=== PATIENT | female | born 1975 | race Caucasian/White ===

== ENCOUNTER 2019-09-06 21:04 | Emergency (ER) | payer OTHER, SELFPAY ==
--- NOTE | 2019-09-06 21:17 | ED.ANIMALBIT ---
HPI - Animal Bite General Chief Complaint: Animal Bite Stated Complaint: Rt hand dog bite Time Seen by Provider: 09/06/19 21:17 Source: patient and family Mode of arrival: ambulatory Limitations: no limitations History of Present Illness HPI narrative: 44-year-old woman comes in today complaining of lacerations on her right hand that occurred when her dog bit her. She was trying to break up a fight between her 2 dogs when it happened. She states her last tetanus shot was last summer. She states she has a little decreased feeling in her finger tips but she has no numbness. complaint: animal bite Onset (ago): hour(s) (1) Animal: dog Description of animal: household pet and immunizations UTD Mechanism: bite Location: other ( Right hand) Pain description: sharp Severity scale (1-10): 3 Context: animals fighting Associated symptoms: bleeding Treatments prior to arrival: pressure Related Data Patient tetanus UTD: Yes Home Medications Medication Instructions Recorded Confirmed sertraline 50 mg PO DAILY 09/06/19 09/06/19 topiramate 25 mg PO DAILY 09/06/19 09/06/19 Allergies Allergy/AdvReac Type Severity Reaction Status Date / Time No Known Allergies Allergy Verified 09/06/19 21:58 Review of Systems Constitutional: Constitutional: Denies chills, Denies fever(s) and Denies weakness ENT: Denies dysphagia, Denies nasal congestion and Denies sore throat Cardiovascular: Cardiovascular: Denies chest pain and Denies radiating jaw, neck or arm pain Respiratory: Respiratory: Denies cough, Denies dyspnea and Denies wheezing Gastrointestinal: Gastrointestinal: Denies nausea and Denies vomiting Integumentary/Breasts: Skin/Breast: Reports as per HPI, Denies pruritus, Denies erythema and Denies rash Neurologic: Denies vertigo, Denies dizziness, Denies syncope, Denies numbness and Denies weakness Hematologic/Lymphatic: Hematologic/Lymphatic: Denies easy bleeding and Denies easy bruising Allergic/Immunologic: Allergic/Immunologic: Denies lip swelling and Denies wheezing PMFSH Past Medical History Medical History Depression Surgical History Surgical History History of Social History Social History (Updated 09/06/19 @ 21:55 by Issa Medina MD) Smoking status: Never smoker Alcohol intake: never Substance use: never Living arrangements: with family Exam Const: General: no acute distress and alert Orientation/consciousness: patient oriented x3 Limitations: no limitations Skin: Other: 3 dorsal hand lacerations are noted. One, 1cm laceration between index and long fingers, the 2nd his on the dorsal aspect the right hand an approximately 1.2 cm. the 3rd is 1.8 cm, slightly irregular, and the base of the right thumb. Neuro: General: patient oriented x3, moves all extremities, no focal motor deficits and CN's II-XI intact bilaterally Other: Extensor tendons of the thumb and index finger both superficial and profundus are intact To challenge. Normal sensation the distal thumb, index, and long fingers. Extrem: General: normal to inspection and no clubbing, cyanosis or edema Psych: Appearance: grossly normal and well kempt Mental Status: mental status grossly normal Affect: normal affect Attitude: cooperative Thought content: Yes Normal thought content present Procedures Laceration Laceration 1: Date: 09/06/19 Time: 21:30 Site: hand Side (If applicable): right Size (cm): 1.2 Description: linear and clean Depth: simple, single layer Local Anesthetic: lidocaine 1% Amount of anesthesia used (mL): 3 Pre-repair: wound explored, irrigated extensively and deep structures intact ====== Skin Level ====== Skin layer closed with: nylon Size (cm): 4-0 Number of sutures: 1 Techni
[2019-09-06 21:20] VITALS: BP 138/76; PULSE 90; RESP 14; TEMP 37.3; O2SAT 99
[2019-09-06] MEDS: LIDOCAINE HCL 1% LOCAL INJ 20 ML VIAL 7 ML INFILTRATE (21:38)
[2019-09-06 22:05] VITALS: RESP 14; O2SAT 100
[2019-09-06] MEDS: AMOXICILLIN/CLAVULANATE K 875-125 MG TAB 1 TABLET PO (22:10)
== END 2019-09-06 22:16 | disposition home or self-care (01) ==
PROVIDERS: Emergency Provider Emergency Medicine; PCP Internal Medicine
DX: S61.411A Laceration without foreign body of right hand, initial encounter (principal); S61.451A Open bite of right hand, initial encounter; W54.0XXA Bitten by dog, initial encounter
CPT/HCPCS: 12002; 99283; A9270

== ENCOUNTER 2021-07-11 08:44 | Outpatient (CLI) | payer OTHER, SELFPAY ==
[2021-07-11 08:54] LABS: Basophils Absolute Auto 0.01 K/mm3 (0.00-0.10); Basophils Percent Auto 0.2 % (0.0-1.0); Eosinophils Absolute Auto 0.19 K/mm3 (0.02-0.50); Eosinophils Percent Auto 3.6 % (1.0-6.0); Hematocrit 39.6 % (35.0-49.0); Hemoglobin 12.8 g/dL (12.0-15.0); Immature Granulocyte Absolute 0.01 K/mm3 (0.00-0.00); Immature Granulocyte Percent A 0.2 % (0.0-0.0); Lymphocytes Absolute Auto 1.54 K/mm3 (1.10-4.50); Lymphocytes Percent Auto 29.4 % (18.0-42.0); Mean Corpuscular HGB Conc 32.3 g/dL (32.0-36.0); Mean Corpuscular Hemoglobin 28.7 pg (27.0-31.0); Mean Corpuscular Volume 88.8 fL (78.0-102.0); Mean Platelet Volume 10.5 fl (9.2-11.8); Monocytes Percent Auto 9.6 % (2.0-11.0); Platelet Count Result 196 K/mm3 (150-420); Red Blood Count 4.46 M/mm3 (4.20-5.40); Red Cell Distribution Width 13.2 % (11.6-14.4); White Blood Count 5.2 K/mm3 (4.8-10.8)
[2021-07-11 08:57] LABS: Add Urine Microscopic? YES; Appearance Urine Clear (Clear); Bilirubin Urine Negative (Negative); Blood Urine 1+ (Negative); Color Urine Light Yellow (Yellow); Glucose Urine UA Negative (Negative); Ketones Urine Negative (Negative); Leukocyte Esterase Ur Trace (Negative); Nitrate Urine Negative (Negative); Protein Urine Negative (Negative); Specific Grav Ur 1.025 (1.010-1.020); Urobilinogen Urine 0.2 mg/dL (0.2-1.0)
[2021-07-11 09:02] LABS: Bacteria Urine Trace /hpf; Mucus Urine Few /lpf; Squamous Epithelial Cell Urine Moderate /hpf (Few); WBC Urine 0-3 /hpf (0-3)
[2021-07-11 09:45] LABS: Alanine Aminotransferase 15 U/L (14-59); Albumin Level 3.1 g/dL (3.4-5.0); Alkaline Phosphatase 51 U/L (46-116); Anion Gap 10 mmol/L (8-16); Aspartate Amino Transferase 11 U/L (15-37); Bilirubin,Total 0.2 mg/dL (0.00-1.00); Blood Urea Nitrogen 16 mg/dL (7-18); Calcium 8.9 mg/dL (8.5-10.1); Carbon Dioxide 27 mmol/L (21-32); Chloride 104 mmol/L (98-108); Cholesterol 217 mg/dL (0-200); Estimated Glomerular Filt Rate > 60; Glucose 87 mg/dL (70-99); HDL Direct 64 mg/dL (40-60); LDL Cholesterol Calculated 104 mg/dL (<130); Osmolality Calculated 292 mOsm/kg (285-295); Potassium 4.1 mmol/L (3.5-5.1); Sodium 141 mmol/L (136-145); Total Protein 7.1 g/dL (6.4-8.2); Triglycerides 244 mg/dL (0-150)
== END 2021-07-11 08:45 | disposition home or self-care (01) ==
LOC: CHSLAB 08:46
PROVIDERS: PCP Internal Medicine; Visit Provider Internal Medicine
DX: Z00.00 Encounter for general adult medical examination without abnormal findings (principal)
CPT/HCPCS: 36415; 80053; 80061; 81001; 84443; 85025

== ENCOUNTER 2021-10-07 08:16 | Outpatient (CLI) | payer OTHER, SELFPAY ==
[2021-10-07 08:28] LABS: Basophils Absolute Auto 0.01 K/mm3 (0.00-0.10); Basophils Percent Auto 0.2 % (0.0-1.0); Eosinophils Absolute Auto 0.09 K/mm3 (0.02-0.50); Eosinophils Percent Auto 1.4 % (1.0-6.0); Hematocrit 42.9 % (35.0-49.0); Immature Granulocyte Absolute 0.02 K/mm3 (0.00-0.00); Immature Granulocyte Percent A 0.3 % (0.0-0.0); Lymphocytes Absolute Auto 1.71 K/mm3 (1.10-4.50); Lymphocytes Percent Auto 26.8 % (18.0-42.0); Mean Corpuscular HGB Conc 32.6 g/dL (32.0-36.0); Mean Corpuscular Hemoglobin 29.2 pg (27.0-31.0); Mean Corpuscular Volume 89.6 fL (78.0-102.0); Mean Platelet Volume 11.2 fl (9.2-11.8); Monocytes Absolute Auto 0.48 K/mm3 (0.10-0.90); Monocytes Percent Auto 7.5 % (2.0-11.0); Neutrophils Absolute Auto 4.1 K/mm3 (1.7-7.2); Neutrophils Percent Auto 63.8 % (50.0-70.0); Platelet Count Result 197 K/mm3 (150-420); Red Blood Count 4.79 M/mm3 (4.20-5.40); Red Cell Distribution Width 13.8 % (11.6-14.4); White Blood Count 6.4 K/mm3 (4.8-10.8)
[2021-10-07 08:42] LABS: Add Urine Microscopic? YES; Appearance Urine Clear (Clear); Bilirubin Urine Negative (Negative); Blood Urine Negative (Negative); Color Urine Light Yellow (Yellow); Glucose Urine UA Negative (Negative); Ketones Urine Negative (Negative); Leukocyte Esterase Ur 1+ (Negative); Nitrate Urine Negative (Negative); Protein Urine Negative (Negative); Specific Grav Ur >= 1.030 (1.010-1.020); Urobilinogen Urine 0.2 mg/dL (0.2-1.0); pH Urine 5.5 (5.0-8.0)
[2021-10-07 08:59] LABS: RBC Urine 0-2 /hpf (0-2); Squamous Epithelial Cell Urine Moderate /hpf (Few)
[2021-10-07 09:00] LABS: Bacteria Urine Trace /hpf
[2021-10-07 09:07] LABS: Alanine Aminotransferase 30 U/L (14-59); Albumin Level 3.5 g/dL (3.4-5.0); Alkaline Phosphatase 81 U/L (46-116); Anion Gap 10 mmol/L (8-16); Aspartate Amino Transferase 33 U/L (15-37); Bilirubin,Total 0.4 mg/dL (0.00-1.00); Blood Urea Nitrogen 13 mg/dL (7-18); Carbon Dioxide 27 mmol/L (21-32); Chloride 104 mmol/L (98-108); Estimated Glomerular Filt Rate > 60; Glucose 88 mg/dL (70-99); Osmolality Calculated 291 mOsm/kg (285-295); Potassium 4.4 mmol/L (3.5-5.1); Sodium 141 mmol/L (136-145); Total Protein 7.4 g/dL (6.4-8.2)
== END 2021-10-07 08:17 | disposition home or self-care (01) ==
LOC: CHSLAB 08:18
PROVIDERS: PCP Internal Medicine; Visit Provider Internal Medicine
DX: R31.9 Hematuria, unspecified (principal); E88.09 Other disorders of plasma-protein metabolism, not elsewhere classified
CPT/HCPCS: 36415; 80053; 81001; 85025

== ENCOUNTER 2022-01-17 15:19 | Outpatient (CLI) | payer OTHER, SELFPAY ==
--- NOTE | ~2022-01-17 | XR_ITS ---
XR lumbar spine 2-3V 01/17/2022 15:48 Indication: Low back pain Procedure: 3 views lumbar spine Comparison: 3 views lumbar spine Findings: Vertebral body heights are maintained. No significant disc narrowing. No evidence for spond ylolisthesis. Pedicles intact. Sacral foramen are symmetric Impression: 1: No significant abnormality of the lumbar spine. Reviewed, dictated and finalized at location A. Impression: 1: No significant abnormality of the lumbar spine.
--- NOTE | ~2022-01-17 | XR_ITS ---
XR knee LT 3V 01/17/2022 15:48 INDICATION: Left knee pain PROCEDURE: 3 views left knee COMPARISON: No prior studies for comparison. FINDINGS: Fracture, dislocation or subluxation is not identified. No significant joint effusion. The soft tissues appear within normal limits. No foreign bodies are identified. IMPRESSION: 1: No significant bone or joint abnormality. Reviewed, dictated and finalized at location A.
--- NOTE | ~2022-01-17 | XR_ITS ---
XR hip LT 2V w AP pelvis 01/17/2022 15:47 Indication: Left hip pain after fall from horse Procedure: AP pelvis and 2 views left hip Comparison: No prior studies for comparison. Findings: There is a small ossific density lateral to the hip, likely related to remote trauma. No ac [place] fracture is identified. Pelvic rings are intact. Proximal aspect of the left femur is unremarkabl e. Sacral foramen are symmetric. There is mild osteitis pubis. No significant soft tissue abnormality . Impression: 1: No acute bone or joint abnormality. Reviewed, dictated and finalized at location A. Impression: 1: No acute bone or joint abnormality.
== END 2022-01-17 15:20 | disposition home or self-care (01) ==
LOC: CHSIMG 15:22
PROVIDERS: PCP Internal Medicine; Visit Provider Internal Medicine
DX: M54.9 Dorsalgia, unspecified (principal); M25.552 Pain in left hip
CPT/HCPCS: 72100; 73502; 73562

== ENCOUNTER 2022-09-11 07:52 | Outpatient (CLI) | payer OTHER, SELFPAY ==
--- NOTE | ~2022-09-11 | CT_ITS ---
EXAMINATION: CT abdomen pelvis w con DATE: 09/11/2022 08:28 INDICATION: Abdominal pain, periumbilical, radiating to right lower and left lower quadrants, intermi ttent nausea, vomiting and diarrhea. Blood in stool one week ago. TECHNIQUE: Computed tomography (CT) of the abdomen and pelvis was performed with 100 CC Omnipaque 350 intravenous contrast. Automated exposure control and iterative reconstruction technique were employe d. Exam dose: 373.39 mGy-cm total exam DLP. COMPARISON: None. FINDINGS: Normal heart size. No pericardial or pleural effusion. Minimal dependent bilateral lower lo be atelectasis. Small sliding hiatal hernia. There are several hypoattenuating lesions of the liver including approximately 11 x 21 mm hypoattenua ting lesion of the lateral segment of the left hepatic lobe, approximately 7 x 13 mm hypoattenuating lesion of the lateral aspect of the right hepatic lobe lateral to the gallbladder and a 10 x 17 mm hy poattenuating lesion of the lateral aspect of the lower right hepatic lobe. Another is situated near the gallbladder fundus in the right hepatic lobe, measuring 6 x 8 mm approximately. Differential diag nosis includes hepatic cysts and or hemangiomas. There is suggestion of some peripheral interrupted c ontrast enhancement of the lateral segment left hepatic lesion, favoring hemangioma at this site. The gallbladder is unremarkable. No gallbladder wall thickening or pericholecystic fluid or fat stran ding. No pancreatic mass lesion, calcification or ductal dilatation. Splenic size is within normal range. Normal morphology of the adrenal glands. Probable 8 mm cyst of left kidney. The kidneys are otherwise unremarkable. No ureteral calculus or hy droureteronephrosis. Normal caliber of the abdominal aorta. No intraperitoneal or retroperitoneal or pelvic mass lesion or adenopathy or ascites. The uterus is unremarkable. Approximately 20 x 25 mm right ovarian cyst. The urinary bladder appears normal. Normal appendix. No bowel obstruction, bowel wall thickening, pneumatosis or intraperitoneal free air . Small fat-containing umbilical hernia. Included skeletal structures are unremarkable. IMPRESSION: Approximately 4 hepatic lesions, likely hemangiomas and/or cysts 8 mm left renal cyst 20 x 25 mm right ovarian cyst Normal appendix Reviewed, dictated and finalized at [facility]. Reviewed, dictated and finalized at location B.
== END 2022-09-11 07:53 | disposition home or self-care (01) ==
LOC: CHSIMG 07:53
PROVIDERS: PCP Internal Medicine; Visit Provider Nurse Practitioner Family
DX: R10.84 Generalized abdominal pain (principal); K62.5 Hemorrhage of anus and rectum; K76.9 Liver disease, unspecified; N28.1 Cyst of kidney, acquired; N83.201 Unspecified ovarian cyst, right side
CPT/HCPCS: 74177; Q9967

== ENCOUNTER 2022-09-29 12:27 | Outpatient (CLI) | payer OTHER, SELFPAY ==
[2022-10-07 00:55] LABS: ANCA Screen Negative (Negative); Myeloperoxidase Ab <1.0 AI (<1.0); Proteinase-3 Ab <1.0 AI (<1.0); S cerevisiae Ab (IgA) 5.7 U (<=20.0); S cerevisiae Ab (IgG) 26.4 U (<=20.0)
== END 2022-09-29 12:28 | disposition home or self-care (01) ==
LOC: CHSLAB 12:29
PROVIDERS: PCP Internal Medicine; Visit Provider Nurse Practitioner Family
DX: R10.84 Generalized abdominal pain (principal)
CPT/HCPCS: 36415; 86036; 86671